=== PATIENT | female | born 2000 | race Caucasian/White ===

== ENCOUNTER 2024-12-02 16:54 | Emergency (ER) | payer MEDICAID ==
[~2024-12-02] VITALS: Ht 154.9 cm; Wt 61.9 kg
[2024-12-02 17:08] VITALS: BP 114/69; PULSE 112; RESP 18; TEMP 97.8; O2SAT 97
--- NOTE | 2024-12-02 17:55 | Physician Documentation ---
History of Present Illness ~ Chief Complaint: Medical Clearance Stated Complaint: WITHDRAWL Time Seen by MD: 17:18 OK to notify your PCP?: Yes Source: patient Mode of Arrival: POV Exam Limitations: no limitations HPI 24-year-old female presenting for medical clearance for rehab program. She has plans to go to [facility] on Wednesday. She was recently in a 30 day residential rehab program but reports being kicked out on the last day prior to getting her prescription for Suboxone. She did relapse yesterday and used fentanyl. She has not had any fentanyl for opiates today. She is requesting some Suboxone for today and until she can get into her program on Wednesday. Medication Reconciliation Allergies: Coded Allergies: codeine (Verified Allergy, Severe, HIVES AND FEVER, 12/02/24) Scheduled Buprenorphine Hcl/Naloxone Hcl (Suboxone 8 Mg-2 Mg Sl Film), 1 STRIP SL DAILY Review of Systems All Other Systems at this time: Reviewed and Negative Physical Exam Vital Signs: RN Vital Signs have been reviewed: Yes, Temperature: 97.8, Source: Oral, Heart Rate: 112, Respiratory Rate: 18, BP: 114/69, Pulse Oximetry: 97, Weight: 61.900 Oxygen Flow Rate: 0 Pulse Oximetry Reflects: adequate oxygenation Physical Exam General: Alert, no distress. HEENT: No injection, moist mucous membranes. Bilateral TM clear, posterior pharynx clear. PERRLA. Neck: Full range of motion. No cervical lymphadenopathy. Respiratory: No respiratory distress, equal chest rise and fall. Chest: No accessory muscle use. Cardiovascular: Regular rate and rhythm. Gastrointestinal: Nondistended. Extremities: Normal range of motion, no deformity. Neurologic: Oriented x4. Psychiatric: Normal mood and affect. Skin: Normal color, warm and dry. Progress Results/Orders Reviewed/noted all lab results: Yes Results/Orders Completed Orders - TARI CHAVEZ [employer] Buprenorphine/Naloxone Sl Film (Suboxone (12/02/24 18:05) Vital Signs 12/02/24 17:08 Temp 97.8 Pulse 112 Resp 18 B/P (MAP) 114/69 Pulse Ox 97 O2 Flow Rate 0 Medical Decision Making Additional info obtained from: old records, family Findings I ordered Suboxone to be given here in the department and then once daily dosing until Wednesday. She only had 1 instance of using fentanyl and has been clean for 30 days otherwise so once daily dosing would be appropriate. She has no medical concerns or complaints. We discussed that she is medically cleared to attend a new rehab facility. Departure Disposition: HOME / SELF CARE / HOMELESS Impression: Primary Impression: General medical exam Additional Impression: Opiate addiction Condition: Stable Discharge Instructions: Medical Screening Exam Additional Instructions: You have been medically cleared to attend rehab. Referrals: NO PRIMARY CARE PROVIDER (PCP) Prescriptions Buprenorphine Hcl/Naloxone Hcl (Suboxone 8 Mg-2 Mg Sl Film) 8 Mg-2 Mg Film 1 STRIP SL DAILY for 3 Days, #3 STRIP Prov: TARI CAHVEZ 12/02/24 Education Educated: Patient Educated regarding: diagnosis, treatment, prognosis, need for follow up Additional Comment Medical Screen Exam This patient recieved a medical screening examination. After reviewing the individual's medical complaints with presenting symptoms and performing an appropriate physical examination, it was determined that no immediate life- threatening emergency medical condition is present. This individual is also not a women having contractions. Signature Scribe Signature: . Attestation: Scribed for Tari Chavez by Tari Ortiz NP . 12/02/24 18:24 Parts of this note were created using [employer] voice recognition software program. While efforts were made to correct any mistakes made by this voice recognition software program, nonsensical phrases may remain in this note. In addition, there may be errors and syntax, grammar, content and spelling. TARI CHAVEZ Dec 02, 2024 17:55
[2024-12-02] MEDS ORDERED: BUPR1FIL3 SL (18:02)
[2024-12-02] MEDS: buprenorphine/naloxone 8MG-2MG SUBlingual film SL ONE (18:31)
== END 2024-12-02 18:36 | disposition home or self-care (01) ==
LOC: ER 16:55
DX: Z00.00 Encounter for general adult medical examination without abnormal findings (principal); F11.20 Opioid dependence, uncomplicated; Z88.5 Allergy status to narcotic agent
CPT/HCPCS: 99283

== ENCOUNTER 2024-12-02 22:19 | Emergency (ER) | payer MEDICAID ==
[~2024-12-02 22:19] MED LIST: BUPR1FIL3 SL
--- NOTE | 2024-12-02 23:16 | Physician Documentation ---
HPI ~ General Chief Complaint: See Chief Complaint Stated Complaint: MEDICATION ERROR Time Seen by MD: 22:41 Source: patient Mode of Arrival: POV Exam Limitations: no limitations History of Present Illness HPI Comments Presents after receiving Suboxone in the emergency department earlier today. She reports feeling unsteady on her feet, visual disturbances, shaking. She states she has not used in over 30 days as she was in rehab and had a relapse yesterday using fentanyl x1. She presents with a support person as well as a boyfriend. Per nursing, visual acuity was normal and she is ambulatory to her room. Medication Reconciliation Allergies: Coded Allergies: codeine (Verified Allergy, Severe, HIVES AND FEVER, 12/02/24) Scheduled Buprenorphine Hcl/Naloxone Hcl (Suboxone 8 Mg-2 Mg Sl Film), 1 STRIP SL DAILY Past Medical History Past Medical History: No Pertinent History Past Surgical History: no surgical history Drug Use: other Review of Systems ROS Patient has multiple medical complaints. She complains of blurred vision, tremors, unsteady gait and feeling too high. Was asked, but otherwise denies review of systems. Physical Exam Physical Exam Vital Signs: RN Vital Signs have been reviewed: Yes, Temperature: 98.7, Source: Temporal, Heart Rate: 65, Respiratory Rate: 14, BP: 131/96, Pulse Oximetry: 100 Pulse Oximetry Reflects: adequate oxygenation Physical Exam General: Awake, alert, oriented. No apparent distress. Tremors are present. Patient is awake and alert and speaking in full sentences. Eyes: EOMI. Respiratory: Lungs are clear to auscultation bilaterally. No respiratory distress. Chest: Normal shape and size. No accessory muscle use. Cardiovascular: Regular rate and rhythm. S1-S2. No murmur, gallop, rub. Neurologic: Alert and oriented x4. Nonfocal. Speech clear. Moving all extremities. Psychiatric: Anxious. Skin: Normal color. Warm and dry. Progress Results/Orders Results/Orders Vital Signs 12/02/24 12/02/24 22:22 23:26 Temp 98.7 98.7 Pulse 65 65 Resp 14 14 B/P (MAP) 131/96 131/96 Pulse Ox 100 100 Medical Decision Making Findings Presents for feeling too high. She received a dose of Suboxone earlier today and has not had Suboxone before. She also has not use fentanyl except for one time over the past 30 days. He is otherwise, awake, alert and oriented. Her visual acuity is normal. Shared decision-making was utilized and it was determined that she feels that she is too high. Medically she is stable. She has plans to discharge home with a care person who will watch over her throughout the night. She was attributed a dose of Narcan to use if needed. Departure Time of Disposition: 23:14 Disposition: HOME / SELF CARE / HOMELESS Impression: Primary Impression: Opiate addiction Qualified Codes: F11.20 - Opioid dependence, uncomplicated Additional Instructions: Recommend that you do not take Suboxone until you are evaluated on Wednesday. You has been given some Narcan in case the relapse. Today, I recommend that you go home and rest. Your friend will help monitor your mental status. Please return for new or worsening symptoms. Referrals: NO PRIMARY CARE PROVIDER (PCP) Education Educated: Patient Educated regarding: diagnosis, treatment, need for follow up Signature Scribe Signature: No scribe Attestation: The note accurately reflects work and decisions made by me.Machelle Ortiz NP 12/03/24 14:34 This note was created with the assistance of voice recognition software whereby errors in grammar, syntax, and/or spelling may have occurred despite active proofreading efforts by the author. Please do not hesitate to contact the provider for clarification or for questions regarding the content of this document. MACHELLE ROBERTSON NP Dec 02, 2024 23:16
[2024-12-02 23:26] VITALS: BP 131/96; PULSE 65; RESP 14; TEMP 98.7; O2SAT 100
== END 2024-12-02 23:30 | disposition home or self-care (01) ==
LOC: ER 22:20
DX: F11.20 Opioid dependence, uncomplicated (principal); Z88.5 Allergy status to narcotic agent; Z79.899 Other long term (current) drug therapy
CPT/HCPCS: 99282

== ENCOUNTER 2024-12-27 23:19 | Emergency (ER) | payer MEDICAID ==
[~2024-12-27] VITALS: Ht 154.9 cm; Wt 54.5 kg
--- NOTE | 2024-12-28 01:55 | Physician Documentation ---
History of Present Illness ~ Chief Complaint: Anxiety Stated Complaint: ALLERGIC REACTION Time Seen by MD: 01:54 HPI Patient presents to the emergency room with chief complaint of anxiety. She states she can not see although she is looking about room and talking with me in the eyes. She believes she had an adverse reaction to Suboxone. Medication Reconciliation Allergies: Coded Allergies: codeine (Verified Allergy, Severe, HIVES AND FEVER, 12/02/24) Past Medical History Past Medical History: No Pertinent History Past Surgical History: no surgical history Drug Use: other Review of Systems ROS All review of systems negative except as per HPI Physical Exam Vital Signs: Temperature: 97.7, Source: Oral, Heart Rate: 108, Respiratory Rate: 16, BP: 113/77, Pulse Oximetry: 100, Weight: 54.500 Physical Exam General: Patient is awake, alert, rambling. Head: Normocephalic and atraumatic. Eyes: Conjunctival normal. EOMI. PERRL. ENT: Mucous membranes moist. Neck: Supple, trachea is midline. Chest: Clear to auscultation bilaterally without rales, rhonchi, or wheezes. There is no accessory muscle use or retractions. Cardiac: RRR without murmurs, gallops, or rubs. Progress Results/Orders Results/Orders Completed Orders - TAJ VELA MD Alprazolam Tablet (Xanax Tablet) (12/28/24 02:10) Medications Received in ER Medications (Trade) Dose Ordered Sig/Russ Route PRN Reason Start Time Stop Time Status Last Admin Dose Admin (Xanax tablet) 1 mg ONCE ONCE PO 12/28/24 02:10 12/28/24 02:11 DC 12/28/24 02:21 1 MG Vital Signs 12/27/24 12/28/24 23:26 02:06 Temp 97.7 97.7 Pulse 108 65 Resp 16 18 B/P (MAP) 113/77 125/77 (93) Pulse Ox 100 97 Medical Decision Making Additional information obtaine: old records Findings Patient presented to the emergency room with vague symptoms which possibly could represent anxiety. I have given her one dose of anxiety medicines here. Neurologic exam as well as vitals are stable and he had not feel emergent labs or imaging is necessary. She is well-appearing. She is accompanied by a friend. I do not believe she is gravely disabled Differential Dx:Considerations: Include: Alcohol abuse, Anxiety, Bipolar disorder, Conversion disorder, Depression, Encephaloathy, Homicidal, Panic disorder, Personality disorder, Schizophrenia, Substance abuse, Suicidal, Other Departure Disposition: 01 HOME / SELF CARE / HOMELESS Impression: Primary Impression: Anxiety Condition: Stable Discharge Instructions: Emotional Crisis Additional Instructions: Follow up with your therapist. Return for any SI/HI Referrals: NO PRIMARY CARE PROVIDER (PCP) Signature Scribe Signature: No scribe Attestation: The note accurately reflects work and decisions made by me.Taj Vela MD 12/28/24 02:26 TAJ VELA MD Dec 28, 2024 01:55
[2024-12-28 02:06] VITALS: BP 125/77; PULSE 65; RESP 18; TEMP 97.7; O2SAT 97
== END 2024-12-28 02:40 | disposition home or self-care (01) ==
LOC: ER 23:20
DX: F41.9 Anxiety disorder, unspecified (principal); Z88.5 Allergy status to narcotic agent
CPT/HCPCS: 99283